=== PATIENT | female | born 1985 | race Hispanic/Latino ===

== ENCOUNTER 2018-03-01 18:03 | Emergency (ER) | payer OTHER ==
--- OUTSIDE RECORDS SUMMARY | 2018-03-01 18:05 | XMS REPORT ---
:1985 [facility] Address [address] [place] [address] Care Team Providers Name Role Phone Unavailable Unavailable Unavailable Problems This patient has no known problems. Allergies, Adverse Reactions, Alerts This patient has no known allergies or adverse reactions. Medications This patient has no known medications.
[2018-03-01 20:04] LABS: Absolute Lymphocytes (CBC) 1.5 K/uL (0.7-4.9); Absolute Monocytes 0.9 K/uL (0.1-1.3); Absolute Neutrophil 11.5 K/uL (1.8-8.0); Basophils % 0.5 % (0-1.3); Eosinophils % 0.3 % (0-4.4); MPV 7.2 fL (7.6-11.3); Monocytes % 6.3 % (3.3-12.3); RBC Red Blood Cell Count 3.83 M/uL (3.86-4.86)
[2018-03-01 20:17] LABS: Urine Blood 3+ (NEG); Urine Glucose NEGATIVE (NEG); Urine Protein 1+ (NEG)
[2018-03-01 20:19] LABS: Bilirubin Total 0.4 mg/dL (0.2-1.0); Potassium 3.4 mmol/L (3.5-5.1); Protein, Total 7.9 g/dL (6.4-8.2)
--- NOTE | 2018-03-01 20:52 | RAD REPORT ---
EXAM DESCRIPTION: CT - Abdomen Pelvis W Contrast - 03/01/2018 8:37 pm CLINICAL HISTORY: Fever, back pain, history of endometriosis COMPARISON: CT imaging December 2012 TECHNIQUE: Biphasic, helical CT imaging of the abdomen and pelvis was performed following 100 ml non -ionic IV contrast. Oral contrast was given. All CT scans are performed using dose optimization technique as appropriate and may include automated exposure control or mA/KV adjustment according to patient size. FINDINGS: No suspicious findings in the lung bases. The liver, spleen, and pancreas show no suspicious findings. Liver attenuation is borderline fatty in filtrated. No gallbladder or biliary tree abnormality. Symmetric renal function is seen with no hydronephrosis or suspicious renal mass. No pyelonephritis o r acute parenchymal process. Urinary bladder is contracted limiting assessment. No adrenal abnormalit ies. No dilated bowel loops or bowel wall thickening. No free air or pneumatosis. No abnormal free fluid collection. Multiple small lymph nodes are present along the aorto iliac chains up to 18 mm in size. No bulky lymphadenopathy. Uterine size is normal. Along each lateral margin and superior margin of the uterus there are numerou s round, oval and tubular low-density masses. Largest is 5 x 2.5 cm. A slightly thickened rim surroun ds each of these low-density masses in these are all believed to be endometriomas given the patient's provided history. Ovaries are not clearly distinguishable from the numerous endometriomas. No suspicious bony findings. IMPRESSION: Endometriosis pattern with numerous endometriomas along the superior and bilateral denisse ns of the uterus. Ovaries are indistinguishable from the multiple endometriomas. No acute GI or process. Liver attenuation is borderline fatty infiltrated.
[2018-03-01] MEDS ORDERED: DOXYCYCLINE 100 MG CAP PO ONE (22:13)
[2018-03-01] MEDS ORDERED: CEFTRIAXONE 1000 MG/VIAL ONE (22:13)
[2018-03-01] MEDS ORDERED: NA CHLORIDE 0.9% 50 ML IV ONE (22:13)
[2018-03-01 22:15] LABS: Urine Bacteria <20 /HPF (<20); Urine Culture Reflex Order NOT NEEDED; Urine RBC LOADED /HPF (NONE SEEN)
--- NOTE | 2018-03-01 23:40 | EDPHYS ---
Physician Documentation [facility] Name: Telma Hein Age: 33 yrs Sex: Female : 1985 Arrival Date: 03/01/2018 Time: 18:06 Bed 13 Private MD: ED Physician Pablo Scanlon HPI: 03/01 20:07 This 33 yrs old Female presents to ER via Ambulatory with complaints of Fever, ps1 Abdominal Pain, Low Back Pain. 20:07 presenting with lower pelvic pain. hx of endometriosis and PID. Was seen and ps1 evaluated previously for same and sent to [facility] in which she was treated with rocephin and doxycycline for 14 days. She states that her symptoms are similar and she states over the last couple of days she has had intermittent fever. She states that the pelvic pain is bilateral with radiation towards the back. Pain rated as moderate. No remitting factors. She does not have CAMOUFLAGE ASSEMBLER care as hers moved (Dr. Cosme) in [facility]. Currently looking for care. . 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 - Social history:: Smoking status: Patient/guardian denies using tobacco. - Ebola Screening: : Patient negative for fever greater than or equal to 101.5 degrees Fahrenheit, and additional compatible Ebola Virus Disease symptoms Patient denies exposure to infectious person Patient denies travel to an Ebola-affected area in the 21 days before illness onset No symptoms or risks identified at this time. ROS: 20:07 ENT: Negative for injury, pain, and discharge, Neck: Negative for injury, pain, and ps1 swelling, Cardiovascular: Negative for chest pain, palpitations, and edema, Respiratory: Negative for shortness of breath, cough, wheezing, and pleuritic chest pain, MS/Extremity: Negative for injury and deformity, Skin: Negative for injury, rash, and discoloration, Neuro: Negative for headache, weakness, numbness, tingling, and seizure. 20:07 Constitutional: Positive for chills, fatigue, fever. 20:07 Abdomen/GI: Positive for abdominal pain. 20:07 : Positive for pelvic pain. Exam: 20:07 Constitutional: This is a well developed, well nourished patient who is awake, alert, ps1 and in no acute distress. Head/Face: Normocephalic, atraumatic. Eyes: Pupils equal round and reactive to light, extra-ocular motions intact. Lids and lashes normal. Conjunctiva and sclera are non-icteric and not injected. Chest/axilla: Normal chest wall appearance and motion. Nontender with no deformity. No lesions are appreciated. Cardiovascular: Regular rate and rhythm. No gallops, murmurs, or rubs. Normal PMI, no JVD. No pulse deficits. Respiratory: Lungs have equal breath sounds bilaterally, clear to auscultation and percussion. No rales, rhonchi or wheezes noted. No increased work of breathing, no retractions or nasal flaring. Skin: Warm, dry with normal turgor. Normal color with no rashes, no lesions, and no evidence of cellulitis. MS/ Extremity: Pulses equal, no cyanosis. Neurovascular intact. Full, normal range of motion. 20:07 Abdomen/GI: Inspection: abdomen appears normal, Bowel sounds: normal, Palpation: mild abdominal tenderness, in the suprapubic area, right lower quadrant and left lower quadrant. Vital Signs: 18:26 BP 131 / 69; Pulse 99; Resp 19; Temp 98.8; Pulse Ox 98% on R/A; Weight 122.47 kg; aj Height 5 ft. 9 in. (175.26 cm); 19:30 BP 116 / 65; Pulse 80; Resp 17 S; Pulse Ox 99% on R/A; cc3 20:15 BP 119 / 68; Pulse 73; Resp 18 S; Pulse Ox 99% on R/A; cc3 21:49 BP 106 / 63; Pulse 75; Resp 17 S; Pulse Ox 100% on R/A; cc3 22:33 BP 131 / 73; Pulse 80; Resp 18 S; Pulse Ox 100% on R/A; cc3 23:49 BP 109 / 70; Pulse 82; Resp 18 S; Temp 98.5(O); Pulse Ox 100% on R/A; cc3 18:26 Body Mass Index 39.87 (122.47 kg, 175.26 cm) aj MDM: 19:45 Patient medically screened. ps1 23:57 Data reviewed: vital signs, nurses notes, lab test result(s), radiologic studies. ED ps1 course: patient with extensive endometriosis with previous adhesolysis and recent admission for PID. Partner not treated. Patient on menses and presenting with bilateral pelvic pain. CT scan demonstrated multiple endometriomas but could not determine TOA or normal anatomy due to extensive endometriomas. She is a habitual aborter and has been seen at [facility] in past. She has a leukocytosis and painful abdomen IV abx started and patient needs to be evaluated for TOA vs intraabdominal abscess vs PID and consideration for surgical evaluation of extensive endometriosis. Patient accepted by Dr. Stacy with [facility]. . 03/01 19:40 Order name: CBC with Diff [facility] 03/01 19:40 Order name: CMP [facility] 03/01 20:05 Order name: CBC with Automated Diff; Complete Time: 20:26 [facility] 03/01 20:12 Order name: Urine Dipstick--Ancillary (enter results) 03/01 20:12 Order name: Urine --Ancillary (enter results) 03/01 20:18 Order name: Urine --Ancillary; Complete Time: 20:26 [facility] 03/01 19:40 Order name: CT Abd/Pelvis - W/Contrast [facility] 03/01 20:18 Order name: Urine Dipstick-Ancillary; Complete Time: 20:26 [facility] 03/01 20:19 Order name: Comprehensive Metabolic Panel; Complete Time: 20:26 [facility] 03/01 20:53 Order name: CT; Complete Time: 20:53 [facility] 03/01 21:54 Order name: Urine Culture 03/01 21:54 Order name: Urine Microscopic Only 03/01 21:54 Order name: Gc Culture [facility] 03/01 22:16 Order name: Urine Microscopic Only; Complete Time: 22:44 [facility] 03/01 19:40 Order name: IV Saline Lock; Complete Time: 20:11 [facility] 03/01 19:40 Order name: Labs collected and sent; Complete Time: 20:11 [facility] 03/01 19:40 Order name: NPO; Complete Time: 20:11 [facility] 03/01 19:40 Order name: Urine Dipstick-Ancillary (obtain specimen); Complete Time: 20:11 [facility] 03/01 19:40 Order name: Urine Test (obtain specimen); Complete Time: 20:10 ps1 Administered Medications: 22:25 Drug: Doxycycline 100 mg Route: PO; cc3 23:00 Follow up: Response: No adverse reaction cc3 22:30 Drug: Rocephin - (cefTRIAXone) 1 grams Route: IVPB; Infused Over: 30 mins; Site: right cc3 antecubital; 23:00 Follow up: Response: No adverse reaction; IV Status: Completed infusion; IV Intake: [id number] Disposition: 03/01/18 23:39 Transfer ordered to [facility]. Diagnosis are PID, Evaluate for TOA, Endometriosis, Severe, Pelvic Pain. - Reason for transfer: Higher level of care. - Accepting physician is Tawanna. - Condition is Stable. - Problem is an ongoing problem. - Symptoms are unchanged. Signatures: Dispatcher [employer] Lanny Cline RN RN aj Singer, Phillip, MD MD ps1 Yaritza Carolina cc3 Corrections: (The following items were deleted from the chart) 03/02 00:13 03/01 23:39 03/01/2018 23:39 Transfer ordered to [facility]. Diagnosis is PID; cc3 Evaluate for TOA; Endometriosis, Severe; Pelvic Pain. Reason for transfer: Higher level of care. Accepting physician is Tawanna. Condition is Stable. Problem is an ongoing problem. Symptoms are unchanged. ps1
--- NOTE | 2018-03-01 23:40 | ER ---
Nurse's Notes [facility] Name: Telma Hein Age: 33 yrs Sex: Female : 1985 Arrival Date: 03/01/2018 Time: 18:06 Bed 13 Private MD: Diagnosis: PID;Evaluate for TOA;Endometriosis, Severe;Pelvic Pain Presentation: 03/01 18:24 Presenting complaint: Patient states: Reports fever and low back pain for 4 days. aj Denies urinary symptoms. Reports similar episode 1 month ago and was sent to [facility] and DX with endometriosis. Transition of care: patient was not received from another setting of care. Onset of symptoms was February 25, 2018. Risk Assessment: Do you want to hurt yourself or someone else? Patient reports no desire to harm self or others. Initial Sepsis Screen: Does the patient meet any 2 criteria? No. Patient's initial sepsis screen is negative. Does the patient have a suspected source of infection? No. Patient's initial sepsis screen is negative. Care prior to arrival: None. 18:24 Method Of Arrival: Ambulatory 18:24 Acuity: SADIQ 3 Triage Assessment: 18:26 General: Appears in no apparent distress. comfortable, Behavior is calm, cooperative, aj appropriate for age. Pain: Complains of pain in low back area and suprapubic area. Neuro: Level of Consciousness is awake, alert, obeys commands, Oriented to person, place, time, situation, Appropriate for age. Respiratory: Airway is patent Respiratory effort is even, unlabored, Respiratory pattern is regular, symmetrical. GI: Abdomen is non-distended, obese. : Reports cramping, vaginal bleeding that is. Derm: Skin is intact, is healthy with good turgor, Skin is pink, warm \T\ dry. normal. 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 - Social history:: Smoking status: Patient/guardian denies using tobacco. - Ebola Screening: : Patient negative for fever greater than or equal to 101.5 degrees Fahrenheit, and additional compatible Ebola Virus Disease symptoms Patient denies exposure to infectious person Patient denies travel to an Ebola-affected area in the 21 days before illness onset No symptoms or risks identified at this time. Screenin:13 Abuse screen: Denies threats or abuse. Denies injuries from another. Nutritional cc3 screening: No deficits noted. Tuberculosis screening: No symptoms or risk factors identified. Fall Risk Ambulatory Aid- None/Bed Rest/Nurse Assist (0 pts). Gait- Normal/Bed Rest/Wheelchair (0 pts) Mental Status- Oriented to own ability (0 pts). Assessment: 19:15 Reassessment: Patient appears in no apparent distress at this time. Patient and/or cc3 family updated on plan of care and expected duration. Pain level reassessed. Patient is alert, oriented x 3, equal unlabored respirations, skin warm/dry/pink. 19:15 GI: Bowel sounds present X 4 quads. Abd is soft and non tender X 4 quads. cc3 20:21 Reassessment: Patient appears in no apparent distress at this time. Patient and/or cc3 family updated on plan of care and expected duration. Pain level reassessed. Patient is alert, oriented x 3, equal unlabored respirations, skin warm/dry/pink. 21:28 Reassessment: Patient appears in no apparent distress at this time. Patient and/or cc3 family updated on plan of care and expected duration. Pain level reassessed. Patient is alert, oriented x 3, equal unlabored respirations, skin warm/dry/pink. 22:22 Reassessment: Patient appears in no apparent distress at this time. Patient and/or cc3 family updated on plan of care and expected duration. Pain level reassessed. Patient is alert, oriented x 3, equal unlabored respirations, skin warm/dry/pink. 23:30 Reassessment: Patient appears in no apparent distress at this time. Patient and/or cc3 family updated on plan of care and expected duration. Pain level reassessed. Patient is alert, oriented x 3, equal unlabored respirations, skin warm/dry/pink. Patient for transfer to [facility], report called and handed over to staff Evelyn Gaming for continuity of care. Transfer form completed and signed by the patient herself. 03/02 00:00 Reassessment: Patient appears in no apparent distress at this time. Patient and/or cc3 family updated on plan of care and expected duration. Pain level reassessed. Patient is alert, oriented x 3, equal unlabored respirations, skin warm/dry/pink. [facility] came for patient transfer. 00:10 Reassessment: Patient left ER for transfer vitally stable by EMS stretcher. cc3 Vital Signs: 03/01 18:26 BP 131 / 69; Pulse 99; Resp 19; Temp 98.8; Pulse Ox 98% on R/A; Weight 122.47 kg; aj Height 5 ft. 9 in. (175.26 cm); 19:30 BP 116 / 65; Pulse 80; Resp 17 S; Pulse Ox 99% on R/A; cc3 20:15 BP 119 / 68; Pulse 73; Resp 18 S; Pulse Ox 99% on R/A; cc3 21:49 BP 106 / 63; Pulse 75; Resp 17 S; Pulse Ox 100% on R/A; cc3 22:33 BP 131 / 73; Pulse 80; Resp 18 S; Pulse Ox 100% on R/A; cc3 23:49 BP 109 / 70; Pulse 82; Resp 18 S; Temp 98.5(O); Pulse Ox 100% on R/A; cc3 18:26 Body Mass Index 39.87 (122.47 kg, 175.26 cm) ED Course: 18:06 Patient arrived in ED. rg4 18:26 Triage completed. aj 18:26 Arm band placed on right wrist. Patient placed in waiting room, Patient notified of wait time. 19:12 Pablo Hdz MD is Attending Physician. [facility] 19:13 Yaritza Carolina is Primary Nurse. cc3 19:13 Patient has correct armband on for positive identification. Placed in gown. Bed in low cc3 position. Call light in reach. Side rails up X 1. Pulse ox on. NIBP on. 19:45 Radiology exam delayed due to test not completed at this time. kw1 20:31 CT completed. Patient moved to CT via wheelchair. Patient moved back from CT. bq 22:33 [id number] initiated transfer with [facility] jordi. spoke with emmie hutson. gm 22:55 doc to doc was done with dr nicko turner and dr hdz. 23:01 [id number] administrative approval was given by emmie hutson. 03/02 00:10 No provider procedures requiring assistance completed. Patient transferred, IV remains cc3 in place. Administered Medications: 03/01 22:25 Drug: Doxycycline 100 mg Route: PO; cc3 23:00 Follow up: Response: No adverse reaction cc3 22:30 Drug: Rocephin - (cefTRIAXone) 1 grams Route: IVPB; Infused Over: 30 mins; Site: right cc3 antecubital; 23:00 Follow up: Response: No adverse reaction; IV Status: Completed infusion; IV Intake: [id number] Intake: 23:00 IV: 50ml; Total: 50ml. cc3 Outcome: 23:39 ER care complete, transfer ordered by . ps1 03/02 00:10 Transferred by ground EMS Transfer form completed. Note: [facility] cc3 Condition: stable Instructed on the need for transfer, Demonstrated understanding of instructions. 00:13 Patient left the ED. cc3 Signatures: Lanny Cheng RN RN Ambar Davies Rubi rg4 Pablo Hdz MD MD ps1 Zeinab Pickard kw1 Yaritza Carolina cc3 Deysi Smart Corrections: (The following items were deleted from the chart) 03/01 23:51 23:30 Reassessment: Patient appears in no apparent distress at this time. Patient cc3 and/or family updated on plan of care and expected duration. Pain level reassessed. Patient is alert, oriented x 3, equal unlabored respirations, skin warm/dry/pink. Patient for transfer to [facility], report called and handed over to staff Evelyn Gaming for continuity of care. cc3
== END 2018-03-02 00:13 | disposition short-term general hospital (02) ==
LOC: ER 18:03
DX: N73.9 Female pelvic inflammatory disease, unspecified (principal); N80.0 Endometriosis of uterus
CPT/HCPCS: 36415; 74177; 80053; 81003; 81015; 81025; 85025; 87070; 87086; 87088; Q9967